=== PATIENT | female | born 1995 | race Caucasian/White ===

== ENCOUNTER 2025-05-13 09:31 | Outpatient (OUT) | payer MEDICAID, SELFPAY ==
--- NOTE | 2025-05-13 09:43 | XR_ITS ---
The [address] [address] Patient Name: CHEYENNE MCDANIELS MRN: [id number] date: 1995 Sex: F Assigned Patient Location: [facility] Current Patient Location: [facility] Accession/Order Number: [id number] Exam Date: 05/13/2025 10:12 Report Date: 05/13/2025 10:15 At the request of: JAZZY DALEY DPTravis Procedure: XR foot JONAH min 3V Bilateral foot series 3 views each. Reason for exam: Bilateral foot pain for 4 months COMPARISON: None. FINDINGS: Right foot demonstrates hardware present involving the distal tibia without hardware complication. No focal soft tissue abnormality. Plantar spurring is present. No acute bony process is seen. No bony erosions. Left foot demonstrates no focal soft tissue abnormality. No acute bony process is seen. Joint spaces appear maintained. No bony erosions. Plantar spurring. XR/XR foot JONAH min 3V IMPRESSION: No acute bony process is seen. Bilateral plantar spurring. Partially visualized hardware involving the right distal tibia without complication. Impression dictated by: Romeo Vick Jr. DKristaOKrista 05/13/2025 10:15 AM Dictation Location[facility] Electronically authenticated by: [id number] Y Date: 05/13/2025 10:15
== END 2025-05-13 09:32 | disposition home or self-care (01) ==
PROVIDERS: Visit Provider Podiatrist Foot & Ankle Surgery
DX: M79.672 Pain in left foot (principal); M77.32 Calcaneal spur, left foot; M77.31 Calcaneal spur, right foot
CPT/HCPCS: 73630

== ENCOUNTER 2025-06-02 16:43 | Outpatient (RCR) | payer MEDICAID, SELFPAY | END 2025-06-08 16:15 | disposition home or self-care (01) | LOC: PT 16:43 | PROVIDERS: Visit Provider Podiatrist Foot & Ankle Surgery | DX: M79.671 Pain in right foot (principal); M79.672 Pain in left foot; M72.2 Plantar fascial fibromatosis | CPT/HCPCS: 97014; 97026; 97110; 97161 ==